=== PATIENT | male | born 1975 | race Caucasian/White ===

== ENCOUNTER 2018-07-11 14:43 | Emergency (ER) | payer OTHER ==
[2018-07-11 14:47] VITALS: BP 140/93
[2018-07-11] MEDS ORDERED: TETANUS/DIPHTHERIA/PERTUSSIS 0.5 ML SYRINGE IM ONE (14:47)
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
[2018-07-11] MEDS ORDERED: BUFFERED LIDOCAINE 10 ML SYRINGE SUBQ STA (14:58)
[2018-07-11] MEDS ORDERED: IBUPROFEN 800 MG TABLET PO STA (15:07)
--- NOTE | 2018-07-11 15:15 | XRAY Report ---
Reason: leg inj Procedure Date: 07/11/2018 Accession Number: [id number] / [id number] Procedure: XR - Tib/Fib RT CPT Code: FULL RESULT: EXAM: RIGHT TIBIA/FIBULA RADIOGRAPHY EXAM DATE: 07/11/2018 02:57 PM. CLINICAL HISTORY: Leg inj. Laceration. COMPARISON: None. TECHNIQUE: 2 views. FINDINGS: Bones: No fracture or bone destruction Joints: The visualized knee and ankle joints are normal. No effusions. Soft Tissues: There are 2 small metallic densities measuring 2-3 mm in diameter located anterior and medial to the tibial diaphysis in the mid to lower tibia. IMPRESSION: 1. There are 2 metallic foreign bodies measuring 2-3 mm located anterior and medial to the mid to lower tibial diaphysis. No fracture. RADIA
[2018-07-11] MEDS ORDERED: cephALEXin 250 MG CAPSULE PO STA (15:20)
== END 2018-07-11 15:50 | disposition home or self-care (01) ==
LOC: ED 14:43
DX: S81.821A Laceration with foreign body, right lower leg, initial encounter (principal); W26.8XXA Contact with other sharp object(s), not elsewhere classified, initial encounter; W45.8XXA Other foreign body or object entering through skin, initial encounter; W22.8XXA Striking against or struck by other objects, initial encounter; Y93.89 Activity, other specified
CPT/HCPCS: 12032; 73590; 90471; 90715; 99283; A9270

== ENCOUNTER 2020-09-23 05:29 | Emergency (ER) | payer MEDICAID ==
[2020-09-23] MEDS ORDERED: SODIUM CHLORIDE 0.9% 1,000 ML IV STA (05:34)
[2020-09-23] MEDS ORDERED: ONDANSETRON 4 MG/2 ML VIAL IVP STA (05:34)
[2020-09-23] MEDS ORDERED: MORPHINE 10 MG/ML VIAL IVP STA (05:34)
[2020-09-23 05:52] LABS: BASOPHILS # (AUTO) 0.1 10^3/uL (0.0-0.1); EOSINOPHILS # (AUTO) 0.2 10^3/uL (0.0-0.7); EOSINOPHILS % (AUTO) 2.1 %; HCT - HEMATOCRIT 47.9 % (42.0-52.0); HGB - HEMOGLOBIN 16.1 g/dL (14.0-18.0); LYMPHOCYTES # (AUTO) 1.7 10^3/uL (1.5-3.5); LYMPHOCYTES % (AUTO) 19.1 %; MEAN CORPUSCULAR HEMOGLOBIN 29.3 pg (27.0-31.0); MEAN CORPUSCULAR HGB CONC 33.6 g/dL (32.0-36.0); MEAN CORPUSCULAR VOLUME 87.2 fL (80.0-94.0); MEAN PLATELET VOLUME 10.3 fL (7.4-11.4); MONOCYTES # (AUTO) 0.6 10^3/uL (0.0-1.0); MONOCYTES % (AUTO) 7.4 %; NEUTROPHILS # (AUTO) 6.1 10^3/uL (1.5-6.6); NEUTROPHILS % (AUTO) 70.2 %; PLT - PLATELET COUNT 287 10^3/uL (130-450); RED BLOOD COUNT 5.49 10^6/uL (4.70-6.10); RED CELL DISTRIBUTION WIDTH 12.7 % (12.0-15.0); WHITE BLOOD COUNT 8.7 x10^3/uL (4.8-10.8)
[2020-09-23 06:02] LABS: ALBUMIN 4.4 g/dL (3.2-5.5); ALBUMIN/GLOBULIN RATIO 1.4 (1.0-2.2); BILIRUBIN,TOTAL 0.6 mg/dL (0.2-1.0); CALCIUM 9.8 mg/dL (8.5-10.3); CREATININE 0.7 mg/dL (0.6-1.2); TOTAL PROTEIN 7.5 g/dL (6.7-8.2)
[2020-09-23] MEDS ORDERED: METOCLOPRAMIDE 10 MG/2 ML VIAL IVP STA (06:16)
[2020-09-23] MEDS ORDERED: HYDROmorphone 1 MG/ML CARPUJECT IVP STA (06:17)
--- NOTE | 2020-09-23 06:17 | ED Physician Documentation ---
History of Present Illness - Stated complaint Stated Complaint: VOMITING, DIARRHEA - Chief complaint Chief Complaint: Abd Pain - History obtained from History obtained from: Patient - Additonal information Additional information: 45-year-old man, Not vaccinated against COVID-19 positive Covid exposure a couple weeks ago presents with nausea, vomiting, diarrhea. He is unsure if there is blood in the stool but had 2 episodes starting earlier this morning and has had multiple episodes of retching with reddish material coming out. He did have spaghetti for dinner. Endorses epigastric abdominal pain that is constant, aching, gradual in onset, worse with vomiting, nonradiating. Pain is "12 out of 10". Endorses subjective fever and chills. Denies urinary symptoms Review of Systems Unable to obtain: Other (patient actively retching) Constitutional: reports: Fever, Chills, Myalgias, Fatigue Cardiac: denies: Chest pain / pressure Respiratory: denies: Dyspnea GI: reports: Abdominal Pain, Nausea, Vomiting, Diarrhea PD PAST MEDICAL HISTORY - Present Medications Home Medications: Ambulatory Orders Medication Instructions Recorded Confirmed Ondansetron Odt [Zofran Odt] 4 mg TL Q6H PRN #10 tablet 09/23/20 - Allergies Allergies/Adverse Reactions: Allergies Allergy/AdvReac Type Severity Reaction Status Date / Time bee venom protein (honey bee) Allergy Edema Verified 07/11/18 14:48 PD ED PE NORMAL - Vitals Vital signs reviewed: Yes - General General: Alert and oriented X 3, Other (Diaphoretic, retching) - HEENT HEENT: Atraumatic, PERRL, EOMI - Neck Neck: Supple, no meningeal sign - Cardiac Cardiac: RRR - Respiratory Respiratory: No respiratory distress, Clear bilaterally - Abdomen Abdomen: Non tender, Non distended, Other (Epigastric discomfort to palpation) - Back Back: No CVA TTP - Derm Derm: Normal color, Warm and dry - Extremities Extremities: No deformity - Neuro Neuro: Alert and oriented X 3 - Psych Psych: Other (minimal eye contact) Results - Vitals Vitals: Vital Signs - 24 hr 09/23/20 05:40 Temperature 36.5 C Heart Rate 96 Respiratory 22 Rate Blood Pressure 141/103 H O2 Saturation 98 Oxygen O2 Source Room air - EKG (time done) 0701 Rate: Rate (enter#) Rhythm: NSR [place]: Normal Intervals: Normal OR QRS: Normal Ischemia: Other (ROSALINE. no STEMI) - Labs Labs: Laboratory Tests 09/23/20 09/23/20 05:41 05:41 WBC 8.7 RBC 5.49 Hgb 16.1 Hct 47.9 MCV 87.2 MCH 29.3 MCHC 33.6 RDW 12.7 Plt Count 287 MPV 10.3 Neut # (Auto) 6.1 Lymph # (Auto) 1.7 [place] # (Auto) 0.6 Eos # (Auto) 0.2 Baso # (Auto) 0.1 Absolute Nucleated RBC 0.00 Nucleated RBC % 0.0 Sodium 137 Potassium 4.0 Chloride 99 L Carbon Dioxide 29 Anion Gap 9.0 BUN 17 Creatinine 0.7 Estimated GFR (MDRD) 122 Glucose 132 H Calcium 9.8 Total Bilirubin 0.6 AST 50 H ALT 57 Alkaline Phosphatase 106 Total Protein 7.5 Albumin 4.4 Globulin 3.1 Albumin/Globulin Ratio 1.4 Lipase 42 PD MEDICAL DECISION MAKING - ED course ED course: Patient still diaphoretic on reexamination however he is resting comfortably in bed, no longer retching. He states that his abdominal pain has improved from 12 out of 10 to an 8 or 10 out of 10. Will provide additional pain medication, nausea medication, and obtain CT abdomen pelvis to rule out emergent etiology. CT unremarkable. patient in NAD now, resting comfortably. I d/w the patient that he likely has viral syndrome. will send covid swab. return precautions given. plan to quarantine and f/u with primary doc via telehealth as needed. Departure - Departure Disposition: 01 Home, Self Care Clinical Impression: Abdominal pain, Nausea and vomiting, Diarrhea Condition: Good Instructions: Diet Clear Liquid Dc, ED Diarrhea Viral Prescriptions: Ondansetron Odt [Zofran Odt] 4 mg TL Q6H PRN #10 tablet PRN Reason: Nausea / Vomiting Comments: You are seen in the emergency department for nausea vomiting and diarrhea. Your lab work was unremarkable and your CT did not show any emergent findings. please follow-up with your primary doctor this week and return to the emergency department if you have any new or worsening symptoms or other concerns.
[2020-09-23] MEDS ORDERED: IOPAMIDOL-300 100 ML VIAL ONE (06:24)
[2020-09-23] MEDS ORDERED: IOPAMIDOL-300 100 ML VIAL IVP ONE (06:53)
[2020-09-23 07:26] VITALS: BP 146/96
--- NOTE | 2020-09-23 09:14 | CT Report ---
PROCEDURE: Abdomen/Pelvis W INDICATIONS: Epigastric abdominal pain, nausea, vomiting, diarrhea CONTRAST: IV CONTRAST: Isovue 300 ml: 100 PO CONTRAST: *NO PO CONTRAST TECHNIQUE: After the administration of intravenous contrast, 5 mm thick sections acquired from the diaphragms to the symphysis. 5 mm thick coronal and sagittal reformats were acquired. For radiation dose reducti on, the following was used: automated exposure control, adjustment of mA and/or kV according to monse ent size. COMPARISON: None. FINDINGS: Image quality: Excellent. ABDOMEN: Lung bases: Lung bases are clear. Heart size is normal. Solid organs: Liver and spleen are normal in size and enhancement. Gallbladder is normal. Biliary system is nondilated. Pancreas enhances normally. No adrenal nodules. Kidneys demonstrate normal s ize and enhancement, without hydronephrosis. Peritoneum and bowel: Bowel loops demonstrate normal wall thickness and caliber. No free fluid or a ir. Nodes and vessels: No retroperitoneal or mesenteric adenopathy by size criteria. Aorta and inferior vena cava are normal in size. Miscellaneous: No ventral hernias. PELVIS: Genitourinary: Bladder wall thickness is normal. Miscellaneous: No inguinal hernias or adenopathy. Bones: No suspicious bony lesions. No vertebral body compression fractures. IMPRESSION: No acute finding. No significant change from preliminary report. Reviewed by: Nelson Aragon MD on 09/23/2020 9:13 AM PDT Approved by: Nelson Aragon MD on 09/23/2020 9:13 AM PDT Station ID: [id number]
== END 2020-09-23 07:35 | disposition home or self-care (01) ==
LOC: ED 05:29
DX: R11.2 Nausea with vomiting, unspecified (principal); R19.7 Diarrhea, unspecified; R10.13 Epigastric pain
CPT/HCPCS: 36415; 74177; 80053; 83690; 85025; 93005; 96374; 96375; 99284; J1170; J2765; Q9967

== ENCOUNTER 2022-06-23 22:55 | Outpatient (CLI) | payer MEDICAID | END 2022-06-23 23:59 | disposition critical access hospital (66) | LOC: EMS 22:55 | DX: R41.0 Disorientation, unspecified (principal); R40.0 Somnolence; R03.0 Elevated blood-pressure reading, without diagnosis of hypertension; R00.0 Tachycardia, unspecified | CPT/HCPCS: A0425; A0429; A0999 ==

== ENCOUNTER 2022-06-23 23:06 | Emergency (ER) | payer MEDICAID, OTHER ==
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
[2022-06-24 00:13] VITALS: BP 132/94
== END 2022-06-24 00:14 | disposition home or self-care (01) ==
LOC: EDUNIT# → EDBD → ED 23:06
DX: K40.90 Unilateral inguinal hernia, without obstruction or gangrene, not specified as recurrent (principal); F19.10 Other psychoactive substance abuse, uncomplicated
CPT/HCPCS: 99282; 99283

== ENCOUNTER 2022-07-21 14:15 | Outpatient (CLI) | payer OTHER ==
[2022-07-21 14:32] LABS: BASOPHILS % (AUTO) 0.6 %; EOSINOPHILS # (AUTO) 0.1 10^3/uL (0.0-0.7); EOSINOPHILS % (AUTO) 1.2 %; HCT - HEMATOCRIT 41.2 % (42.0-52.0); HGB - HEMOGLOBIN 13.7 g/dL (14.0-18.0); LYMPHOCYTES # (AUTO) 1.5 10^3/uL (1.5-3.5); LYMPHOCYTES % (AUTO) 20.2 %; MEAN CORPUSCULAR HEMOGLOBIN 29.9 pg (27.0-31.0); MEAN CORPUSCULAR HGB CONC 33.3 g/dL (32.0-36.0); MEAN PLATELET VOLUME 10.9 fL (7.4-11.4); MONOCYTES # (AUTO) 0.4 10^3/uL (0.0-1.0); MONOCYTES % (AUTO) 5.7 %; NEUTROPHILS # (AUTO) 5.2 10^3/uL (1.5-6.6); NEUTROPHILS % (AUTO) 72.2 %; PLT - PLATELET COUNT 213 10^3/uL (130-450); RED BLOOD COUNT 4.58 10^6/uL (4.70-6.10); RED CELL DISTRIBUTION WIDTH 12.8 % (12.0-15.0); WHITE BLOOD COUNT 7.2 x10^3/uL (4.8-10.8)
[2022-07-21 15:07] LABS: ALBUMIN 3.7 g/dL (3.2-5.5); ALBUMIN/GLOBULIN RATIO 1.5 (1.0-2.2); BILIRUBIN,TOTAL 0.3 mg/dL (0.2-1.0); CALCIUM 9.2 mg/dL (8.5-10.3); CREATININE 0.8 mg/dL (0.6-1.2); POTASSIUM 4.8 mmol/L (3.5-5.0); TOTAL PROTEIN 6.2 g/dL (6.7-8.2)
[2022-07-21 15:18] LABS: ESTIMATED AVERAGE GLUCOSE 111 mg/dL (70-100); HEMOGLOBIN A1c% 5.5 % (4.27-6.07)
== END 2022-07-21 14:16 | disposition home or self-care (01) ==
LOC: LAB.R 14:15
PROVIDERS: ATTEND Registered Nurse
DX: R79.89 Other specified abnormal findings of blood chemistry (principal)
CPT/HCPCS: 80053; 83036; 85025

== ENCOUNTER 2023-02-26 16:41 | Outpatient (CLI) | payer MEDICAID | END 2023-02-26 16:42 | disposition critical access hospital (66) | LOC: EMS 16:41 | DX: R10.31 Right lower quadrant pain (principal); R10.32 Left lower quadrant pain; R11.10 Vomiting, unspecified; R14.0 Abdominal distension (gaseous); R09.89 Other specified symptoms and signs involving the circulatory and respiratory systems; R61 Generalized hyperhidrosis; Z59.01 Sheltered homelessness | CPT/HCPCS: A0425; A0429; A0999 ==

== ENCOUNTER 2023-05-21 18:46 | Emergency (ER) | payer MEDICAID ==
[2023-05-21 19:36] LABS: BASOPHILS # (AUTO) 0.1 10^3/uL (0.0-0.1); BASOPHILS % (AUTO) 0.4 %; EOSINOPHILS % (AUTO) 0.1 %; HCT - HEMATOCRIT 39.9 % (42.0-52.0); HGB - HEMOGLOBIN 12.7 g/dL (14.0-18.0); LYMPHOCYTES # (AUTO) 1.3 10^3/uL (1.5-3.5); LYMPHOCYTES % (AUTO) 8.1 %; MEAN CORPUSCULAR HEMOGLOBIN 27.7 pg (27.0-31.0); MEAN CORPUSCULAR HGB CONC 31.8 g/dL (32.0-36.0); MEAN CORPUSCULAR VOLUME 87.1 fL (80.0-94.0); MEAN PLATELET VOLUME 9.1 fL (7.4-11.4); MONOCYTES # (AUTO) 0.8 10^3/uL (0.0-1.0); MONOCYTES % (AUTO) 4.6 %; NEUTROPHILS # (AUTO) 14.2 10^3/uL (1.5-6.6); NEUTROPHILS % (AUTO) 86.4 %; PLT - PLATELET COUNT 631 10^3/uL (130-450); RED BLOOD COUNT 4.58 10^6/uL (4.70-6.10); RED CELL DISTRIBUTION WIDTH 14.2 % (12.0-15.0); WHITE BLOOD COUNT 16.5 x10^3/uL (4.8-10.8)
[2023-05-21] MEDS: SODIUM CHLORIDE 0.9% 1,000 ML IV STA (19:38)
[2023-05-21] MEDS: IPRATROPIUM/ALBUTEROL 3 ML NEB INH STA (19:41)
[2023-05-21 19:52] LABS: ALBUMIN 3.3 g/dL (3.2-5.5); ALBUMIN/GLOBULIN RATIO 0.9 (1.0-2.2); BILIRUBIN,TOTAL 0.3 mg/dL (0.2-1.0); CALCIUM 9.4 mg/dL (8.5-10.3); CREATININE 0.7 mg/dL (0.6-1.3); POTASSIUM 3.6 mmol/L (3.5-4.5); TOTAL PROTEIN 7.1 g/dL (6.4-8.9)
--- NOTE | 2023-05-21 19:58 | ED Physician Documentation ---
History of Present Illness - Stated complaint Stated Complaint: SOA/COUGH - Chief complaint Chief Complaint: Resp - History obtained from History obtained from: Patient - History of Present Illness Pain level max: 5 Pain level now: 5 - Additonal information Additional information: Patient is a 48-year-old male who states that he has been living in his truck since he got out of [facility] months ago. He states that over the past several weeks he has been coughing more than usual. He is coughing up "mucus". His friend states that it was [place] in color. He usually smokes about a pack a day but has had to cut back on his smoking because he is having more difficulty breathing. He also smokes "blues" for pain. He states he has not been able to do that for 2 to 3 days either and feels like he is withdrawing from the fentanyl. Also complains of a "bump" to the L buttock. Patient denies any IV or IM drug use. Patient states he has not had any fevers at home. Patient states does not have any history of lung disease but does not see a doctor. Has not used inhalers in the past. Review of Systems Constitutional: denies: Fever, Chills Respiratory: denies: Cough GI: denies: Nausea, Vomiting, Diarrhea Skin: denies: Rash Musculoskeletal: denies: Neck pain, Back pain Neurologic: denies: Headache PD PAST MEDICAL HISTORY - Past Medical History Past Medical History: Yes GI: Other Psych: Depression Other Past Medical History: ingeniual hernia - Past Surgical History Past Surgical History: No - Present Medications Home Medications: Ambulatory Orders Medication Instructions Recorded Confirmed Ondansetron Odt [Zofran Odt] 4 mg TL Q6H PRN #10 tablet 09/23/20 Sulfamethox/Trimeth 800/160 1 each PO BID #14 tablet 02/26/23 [Bactrim Ds 800/160] Albuterol Sulf [Ventolin Hfa 1 - 2 puffs INH Q4HR PRN #1 each 05/21/23 Inhaler] Amox/Clav 875/125 [Augmentin] 1 tab PO Q12H #20 tablet 05/21/23 Sulfamethox/Trimeth 800/160 1 each PO BID #20 tablet 05/21/23 [Bactrim Ds 800/160] - Allergies Allergies/Adverse Reactions: Allergies Allergy/AdvReac Type Severity Reaction Status Date / Time bee venom protein (honey bee) Allergy Edema Verified 05/21/23 19:01 - Social History Does the pt smoke?: Yes Smoking Status: Current every day smoker Does the pt drink ETOH?: No Does the pt have substance abuse?: Yes - Immunizations Immunizations are current?: Yes - POLST Patient has POLST: No PD ED PE NORMAL - Vitals Vital signs reviewed: Yes - General General: Alert and oriented X 3, No acute distress - HEENT HEENT: PERRL, Moist mucous membranes - Neck Neck: Supple, no meningeal sign - Cardiac Cardiac: RRR, Strong equal pulses - Respiratory Respiratory: Other (Mild wheezing bilaterally with mildly diminished breath sounds.) - Abdomen Abdomen: Soft, Non tender, Non distended - Derm Derm: Warm and dry - Extremities Extremities: No edema, No calf tenderness / cord, Other (Small 1 x 2 cm area of erythema to the left buttock. No significant induration or fluctuance.) - Neuro Neuro: Alert and oriented X 3 - Psych Psych: Normal mood, Normal affect Results - Vitals Vitals: Vital Signs - 24 hr 05/21/23 05/21/23 05/21/23 18:55 19:40 20:30 Temperature 37.4 C Heart Rate 134 H 128 H 110 H Respiratory 20 28 H 20 Rate Blood Pressure 149/111 H 140/102 H O2 Saturation 94 95 If not protocol 1 1 : Oxygen Flow, liters/minute 05/21/23 21:51 Temperature Heart Rate 101 H Respiratory 18 Rate Blood Pressure 154/98 H O2 Saturation 95 If not protocol : Oxygen Flow, liters/minute Oxygen O2 Source Nasal cannula Oxygen Flow Rate 2 - Labs Labs: Laboratory Tests 05/21/23 05/21/23 05/21/23 19:25 19:25 19:25 WBC 16.5 H RBC 4.58 L Hgb 12.7 L Hct 39.9 L MCV 87.1 MCH 27.7 MCHC 31.8 L RDW 14.2 Plt Count 631 H MPV 9.1 Neut # (Auto) 14.2 H Lymph # (Auto) 1.3 L [place] # (Auto) 0.8 Eos # (Auto) 0.0 Baso # (Auto) 0.1 Absolute Nucleated RBC 0.00 Nucleated RBC % 0.0 Sodium 136 Potassium 3.6 Chloride 102 Carbon Dioxide 26 Anion Gap 8.0 BUN 8 Creatinine 0.7 Estimated GFR (MDRD) 120 Glucose 126 H Calcium 9.4 Total Bilirubin 0.3 AST 19 ALT 33 Alkaline Phosphatase 192 H Total Protein 7.1 Albumin 3.3 Globulin 3.8 Albumin/Globulin Ratio 0.9 L Nasal Adenovirus (PCR) NOT DETECTED Nasal B. parapertussis DNA (PCR) NOT DETECTED Nasal Coronavir 229E PCR NOT DETECTED Nasal Coronavir HKU1 PCR NOT DETECTED Nasal Coronavir NL63 PCR NOT DETECTED Nasal Coronavir OC43 PCR NOT DETECTED Nasal Enterovir/Rhinovir PCR NOT DETECTED Nasal Influenza B PCR NOT DETECTED Nasal Influenza A PCR NOT DETECTED Nasal Parainfluen 1 PCR NOT DETECTED Nasal Parainfluen 2 PCR NOT DETECTED Nasal Parainfluen 3 PCR NOT DETECTED Nasal Parainfluen 4 PCR NOT DETECTED Nasal RSV (PCR) NOT DETECTED Nasal B.pertussis DNA PCR NOT DETECTED Nasal C.pneumoniae (PCR) NOT DETECTED Nilesh Human Metapneumo PCR NOT DETECTED Nasal M.pneumoniae (PCR) NOT DETECTED Nasal SARS-CoV-2 (PCR) NOT DETECTED - Rads (name of study) cxr Relevant Findings:: Final report received, See rad report PD Medical Decision Making - ED course Complexity details: reviewed results, re-evaluated patient, considered differential, d/w patient ED course: Patient with a small cellulitis to the left buttock. No drainable abscess. Will place on antibiotics for this. Also appears to have a early left lower lobe pneumonia, and we will treat with antibiotics for this as well. No hypoxia. No respiratory distress. Heart rate is mildly elevated likely secondary to fentanyl withdrawal. Improved with albuterol nebulizer treatment. No fevers. No evidence of sepsis. We will prescribe an albuterol inhaler for home in addition to Augmentin and Bactrim which should cover his pneumonia and cellulitis. Recommend close follow-up with the walk-in clinic. Patient was given a dose of oxycodone here for pain/withdrawal. Patient counseled regarding signs and symptoms for which I believe and urgent re-evaluation would be necessary. Patient with good understanding of and agreement to plan and is comfortable going home at this time This document was made in part using voice recognition software. While efforts are made to proofread this document, sound alike and grammatical errors may occur. Departure - Departure Disposition: 01 Home, Self Care Clinical Impression: Cellulitis Qualifiers: Site of cellulitis: buttock Qualified Code(s): L03.317 - Cellulitis of buttock Pneumonia Qualifiers: Pneumonia type: due to unspecified organism Laterality: left Lung location: lower lobe of lung Qualified Code(s): J18.9 - Pneumonia, unspecified organism Condition: Good Instructions: ED Infec Skin Cellulitis, ED Pneumonia Adult Follow-Up: [facility] [Provider Group] Primary/Walk In [facility] [Provider Group] [facility] [Provider Group] [facility] [place] [Provider Group] Prescriptions: Albuterol Sulf [Ventolin Hfa Inhaler] 1 - 2 puffs INH Q4HR PRN #1 each PRN Reason: Shortness Of Air/Wheezing Amox/Clav 875/125 [Augmentin] 1 tab PO Q12H #20 tablet Sulfamethox/Trimeth 800/160 [Bactrim Ds 800/160] 1 each PO BID #20 tablet Comments: Your prescriptions were sent to [facility] in [place]. Use the inhaler as pre scribed. Take the antibiotics as prescribed as well. Please return if you develop worsening breathing, fevers or other new or worrisome symptoms. Forms: PCP List Discharge Date/Time: 05/21/23 21:51
--- NOTE | 2023-05-21 20:34 | XRAY Report ---
PROCEDURE: Chest 2V INDICATIONS: cough TECHNIQUE: 2 views of the chest were acquired. COMPARISON: None. FINDINGS: Surgical changes and devices: None. Lungs and pleura: No pleural effusions or pneumothorax. Left basilar opacity. Mediastinum: Mediastinal contours appear normal. Heart size is normal. Bones and chest wall: No suspicious bony lesions. Overlying soft tissues appear unremarkable. IMPRESSION: Left basilar opacity concerning for pneumonia. Reviewed by: Brett Meek MD on 05/21/2023 8:33 PM PDT Approved by: Brett Meek MD on 05/21/2023 8:33 PM PDT Station ID: [id number]
[2023-05-21] MEDS: SULFAMETH/TRIMETH DS 800/160 MG TABLET PO STA (20:57)
[2023-05-21] MEDS: AMOX/CLAV 875 MG/125 MG TABLET PO STA (20:57)
[2023-05-21 21:03] LABS: B. PARAPERTUSSIS- RESP PCR PAN NOT DETECTED; B. PERTUSSIS- RESP PCR PANEL NOT DETECTED; C. PNEUMONIAE- RESP PCR PANEL NOT DETECTED; CORONAVIRUS 229E-RESP PCR NOT DETECTED; CORONAVIRUS HKU1-RESP PCR NOT DETECTED; CORONAVIRUS NL63-RESP PCR NOT DETECTED; CORONAVIRUS OC43-RESP PCR NOT DETECTED; HUMAN METAPNEUMOVIRUS NOT DETECTED; INFLUENZA A- RESP PCR PANEL NOT DETECTED; INFLUENZA B - RESP PCR PANEL NOT DETECTED; M. PNEUMONIAE- RESP PCR PANEL NOT DETECTED; PARAINFLUENZA VIRUS 1 NOT DETECTED; PARAINFLUENZA VIRUS 2 NOT DETECTED; PARAINFLUENZA VIRUS 3 NOT DETECTED; PARAINFLUENZA VIRUS 4 NOT DETECTED; RHINOVIRUS/ENTEROVIRUS NOT DETECTED; RSV- RESP PCR PANEL NOT DETECTED; SARS-CoV-2 -RESP PCR PANEL NOT DETECTED
[2023-05-21 21:07] VITALS: O2SAT 95
[2023-05-21] MEDS: oxyCODONE 5 MG TABLET PO STA (21:34)
[2023-05-21 21:56] VITALS: BP 154/98
== END 2023-05-21 21:51 | disposition home or self-care (01) ==
LOC: ED 18:46
DX: J18.9 Pneumonia, unspecified organism (principal); L03.317 Cellulitis of buttock; F17.200 Nicotine dependence, unspecified, uncomplicated
CPT/HCPCS: 36415; 71046; 80053; 85025; 87633; 94640; 94664; 99283; 99284; A9270